=== PATIENT | female | born 1935 | race African-American/Black ===

== ENCOUNTER 2016-11-27 05:05 | Inpatient (IN) | payer MEDICARE, BC, OTHER ==
[2016-11-24 17:24] LABS: BASOPHILS 0.3 %; BASOPHILS ABSOLUTE 0.02 10/3/uL (0.0-0.16); EOSINOPHILS 3.4 %; EOSINOPHILS ABSOLUTE 0.26 10/3/uL (0.0-0.53); HEMATOCRIT 30.7 % (36.0-48.0); HEMOGLOBIN 10.1 g/dL (12.0-16.0); IMMATURE GRANULOCYTES 0.3 %; IMMATURE GRANULOCYTES ABSOLUTE 0.02 10/3/uL (0.0-0.11); LYMPHOCYTES 26.8 %; LYMPHOCYTES ABSOLUTE 2.08 10/3/uL (0.67-4.30); MEAN CORPUS HGB CONC 32.9 g/dL (32.0-36.0); MEAN CORPUSCULAR HEMOGLOB 29.6 pg (26.0-34.0); MEAN PLATELET VOLUME 10.4 fL (9.2-13.0); MONOCYTES 8.3 %; MONOCYTES ABSOLUTE 0.64 10/3/uL (0.21-1.20); NEUTROPHILS 60.9 %; NEUTROPHILS ABSOLUTE 4.73 10/3/uL (2.02-8.40); PLATELET COUNT 198 10/3/uL (150-400); RBC DISTRIBUTION WIDTH 14.4 % (12.0-16.0); RED CELL COUNT 3.41 10/6/uL (4.0-5.6); WHITE BLOOD CELLS 7.8 10/3/uL (4.5-10.5)
[2016-11-24 21:36] LABS: MANUAL DIFF NO %
[~2016-11-27] VITALS: Ht 165.1 cm; Wt 89.5 kg
--- NOTE | ~2016-11-27 | CN ---
Consultation Report [facility] [address] [place]. [address] NAME: SARAY HE : [birth year] STATUS : ADM IN PAT#: [id number] AGE: 81 ADM/REG DATE : 11/27/16 MR#: [id number] REPORT SERV DATE: 11/30/16 DICTATED BY: DATE: REPORT STATUS : Draft TRANSCRIBED BY: MODL DATE: 11/27/16 DATE OF CONSULTATION: REASON FOR CONSULTATION: Late stage chronic kidney disease. The patient admitted to Dr. Benavidez for hysterectomy. HISTORY OF PRESENT ILLNESS: This is a very pleasant 81-year-old female patient followed in our office by Dr. Perez Peres. Baseline creatinine appears to be around 3 to 4 ranging higher at her last followup in 10/2016 at 4.7, the GFR of 12 mL/minute. She has had previous left upper extremity fistula which unfortunately had failed and was unusable. The patient at her last followup with Dr. Perse in 10/2016 stated that she had recently been diagnosed with uterine cancer. Subsequent plans were made for initiation of surgical procedure with Dr. Benavidez, and Dr. Peres had discussed with the patient the likelihood of end-stage renal disease and need for initiation of hemodialysis during her hospital stay postoperatively. Subsequently, the patient was seen by Dr. Ritchie here on the and had a right-sided PermCath placed for possible needed hemodialysis post surgical procedure. She is awake and alert this afternoon. Her family is at bedside during evaluation. The patient is somewhat sleepy postoperatively, but able to be aroused. She denies current chest pain. No nausea, vomiting, or diarrhea. PAST MEDICAL HISTORY: Positive for chronic kidney disease, stage 4 to stage 5 with worsening creatinine as of late. Recent medical history as listed above. She is followed at [facility] by Dr. Perez Peres. 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 REVIEW OF SYSTEMS: Completed. Please see HPI for pertinent details. SOCIAL HISTORY: No EtOH. No illicit drugs. No tobacco. FAMILY HISTORY: Noncontributory and not reviewed during this consultation and dictation. ACTIVE MEDICATIONS: Include the following: Tylenol 650 mg p.o. q.4 hours p.r.n.; Norvasc 10 mg p.o. daily; ASA 325 mg p.o. daily; Rocaltrol 2 caplets p.o. daily; vitamin D3 of 1000 units daily; Colace 100 mg p.o. b.i.d.; Cardura 2 mg p.o. daily; Lasix 40 mg p.o. b.i.d.; Neurontin 300 mg p.o. daily; Plaquenil 2 tabs p.o. daily; Atarax 25 mg p.o. t.i.d. p.r.n.; Levemir 10 units subcutaneous daily; insulin NovoLog via sliding scale; Cozaar 100 mg p.o. daily; multivitamin tabs one daily; Senokot 1 tab daily; sodium bicarbonate 650 mg p.o. b.i.d.; and iron [id number] 65 mg p.o. twice daily. PHYSICAL EXAMINATION: VITAL SIGNS: Blood pressure 127/66, temperature 97.8, respiratory rate 18, heart rate at 58 beats per minute and regular, 97% on room air. Consultation Report [facility] [id number] [place]. [address] NAME: SARAY HE : 37 STATUS : ADM IN [facility]#: [id number] AGE: 81 ADM/REG DATE : 11/27/16 MR#: [id number] REPORT SERV DATE: 11/30/16 DICTATED BY: DATE: REPORT STATUS : Draft TRANSCRIBED BY: MODL DATE: 11/27/16 GENERAL: She is awake and alert. Somewhat somnolent post surgical and anesthesia. Denies uncontrolled pain. HEENT: Normocephalic and atraumatic. Normal ocular movements. No scleral icterus. No conjunctival pallor is appreciated. NECK: Supple without thyromegaly. No JVD. No mass. CHEST: Positive S1 and S2. No rubs or gallops. LUNGS: Diminished throughout, normal expansion and effort bilaterally. GI: Rounded non-firm abdomen with positive somewhat sluggish bowel sounds. : Deferred. NEUROLOGIC: She appears to be grossly intact. Nonfocal. SKIN: Warm, dry, and intact to visualized surfaces. No rash, lesions, or ecchymosis. EXTREMITIES: Show positive pulses to all four extremities. No noted clubbing or cyanosis on examination, and she is of appropriate mood and affect. LABORATORY DATA: Pertinent laboratories and imaging to this evaluation are as follows: Most recent electrolyte profile shows sodium 138, potassium 3.4, chloride 103, CO2 of 24, BUN 75, creatinine 3.78, reflected GFR 12 mL/minute, glucose of 165, calcium at 9.0. CBC shows white blood cell count of 7.8, hematocrit 29.7. Chest PA and lateral shows no acute cardiopulmonary abnormality. A right central venous catheter superimposed. IMPRESSION AND PLAN: This is a late stage chronic kidney disease patient of Dr. Perez Peres, chronic kidney disease stage 5 with the patient now at POD 0 robot assisted laparoscopic hysterectomy via Dr. Benavidez. Baseline creatinine appears to be progressively rising of her last visit her creatinine was at 4.7, GFR of 12 mL/minute. In preparation for this surgery she did have a right subclavian access placed by Dr. Ritchie, but fortunately at this point appears to be reasonably stable. She does not appear to be overtly uremic to questioning or examination and her electrolytes are stable as well as her fluid status. She did have an echocardiogram completed during her evaluation for the surgery showing normal left ventricular size with preserved EF at 55% with mild diastolic dysfunction, mild left atrial enlargement, and normal right ventricular size and systolic function, aortic valve sclerosis without stenosis is also noted. We will continue her home medications as above and follow her closely with serial laboratories. She does have a right subclavian access that is in place and usable if clinically warranted. She is currently POD #0 and appears to be non-uremic and has stable electrolytes and volume status at this point. Strict I's and O's, daily weights, monitor blood glucoses and other parameters very closely, and initiate hemodialysis if clinically warranted. Otherwise, we will defer treatment plan primarily to Dr. Benavidez as the patient is admitted to his service and will modify treatment plan based on clinical presentation, patient laboratory results, further consultation with renal attending. We appreciate consultation. We will follow. JR/MODL Consultation Report [facility] [address] [id number] NAME: SARAY HE : 37 STATUS : ADM IN [facility]#: [id number] AGE: 81 ADM/REG DATE : 11/27/16 MR#: [id number] REPORT SERV DATE: 11/30/16 DICTATED BY: DATE: REPORT STATUS : Draft TRANSCRIBED BY: HOLLY DATE: 11/27/16 Milton Garza NP / [id number] CC: Chanelle Taylor M.D.
--- NOTE | ~2016-11-27 | DS ---
Discharge Summary [facility] [address] [place]. [address] NAME: SARAY HE : [birth year] STATUS : DIS IN PAT#: [id number] AGE: 89 ADM/REG DATE : 11/27/16 MR#: [id number] REPORT SERV DATE: 12/11/16 DICTATED BY: DONALD SLOAN DATE: 12/10/16 REPORT STATUS : Draft TRANSCRIBED BY: HOLLY DATE: 12/10/16 Data Collection from hospitalization DISCHARGE DIAGNOSES: 1. Endometrial cancer. 2. Hypertension. 3. Diabetes. 4. Neuropathy. 5. History of renal insufficiency. 6. Late stage chronic kidney disease. 7. Gout. 8. Rheumatoid arthritis. 9. Gastroesophageal reflux disease. CONSULTATIONS: Milton Garza NP PROCEDURES PERFORMED: Robotic hysterectomy with bilateral salpingo-oophorectomy with endometrial cancer staging with pelvic sentinel node dissection with Firefly-assisted cystoscopy and laparoscopic robotic-assisted appendectomy on 11/27/2016. PATHOLOGY: Pelvic washings (ThinPrep) - negative for malignancy. Lymph node, excision left common iliac sentinel node #1 - no tumor seen. Lymph node, excision of right common iliac sentinel node #2 - no tumor seen. Appendix - no tumor seen. Uterus, bilateral fallopian tubes and ovaries, uterus - endometrioid adenocarcinoma. MEDICATIONS: Tylenol 650 mg every four hours as needed, Norvasc 10 mg every morning, Charisse Aspirin 325 mg every morning, Rocaltrol two capsules every morning, vitamin D3 2000 units daily, Colace 100 mg twice a day, Cardura 2 mg every evening, Lasix 40 mg twice a day, Neurontin 300 mg every day at bedtime, Plaquenil two tablets every morning, Atarax 25 mg three times a day as needed, Levemir 10 units subcutaneously every morning, Humalog injection insulin as instructed, Cozaar 100 mg every morning, multivitamins with minerals one tablet daily, Percocet 5/325 one to two tablets every four to six hours as needed, Compazine 10 mg every six hours as needed, Senokot one tablet twice a day as needed, sodium bicarbonate 650 mg twice a day, and iron 65 mg twice a day. CONDITION AT DISCHARGE: Stable. DISPOSITION: The patient was discharged home on a renal-diabetic low-cholesterol diet with no concentrated carbohydrates and activities as instructed. She would follow up with me on 12/14/2016. She would follow up with Dr. Perez Peres on 12/16/2016. She would follow up with her primary care provider as needed. HOSPITAL COURSE: This is a 89-year-old female who has grade III endometrial carcinoma. She has had an MRI of her back secondary to back pain and an incidental abnormal uterus was found. She went on to have endometrial biopsy performed, which revealed the diagnosis of grade III endometrial carcinoma. Treatment options were discussed and it was elected to proceed with surgical intervention. She was admitted to the hospital at this time for further evaluation and treatment. Discharge Summary [facility] [address] [place]. [address] NAME: SARAY HE : [birth year] STATUS : DIS IN PAT#: [id number] AGE: 89 ADM/REG DATE : 11/27/16 MR#: [id number] REPORT SERV DATE: 12/11/16 DICTATED BY: DONALD SLOAN DATE: 12/10/16 REPORT STATUS : Draft TRANSCRIBED BY: HOLLY DATE: 12/10/16 Upon admission, she was taken to the operating room where she underwent the above-mentioned procedure. She tolerated this well, and there were no complications. Postoperatively, she was seen by Milton Garza. The patient has stage IV to stage V chronic kidney disease. Creatinine level was 3.78. Baseline creatinine appears to be progressively rising since her last visit and her creatinine at that time had been 4.7. In preparation for surgery, she has had right subclavian access placed by Dr. Ritchie, but fortunately at this point, appeared to be reasonably stable. She did not appear to be overtly uremic. Her electrolytes were stable as well as her fluid status. Her echocardiogram had shown normal left ventricular size with preserved ejection fraction at 55% with mild diastolic dysfunction, mild left atrial enlargement, and normal right ventricular size and systolic function. Aortic valve sclerosis without stenosis was also noted. She has a right subclavian access that was in place and usable if clinically warranted. Hemodialysis would be initiated if clinically warranted. On postop day #1, she had no shortness of breath. She was able to eat breakfast. She had no complaints. She was making urine. She had no uremic symptoms. There was no need for hemodialysis yet. IV fluids were stopped. On 11/29/2016, she had no new complaints. She had no shortness of breath. Over the next couple of days, she continued to tolerate her diet. Creatinine was stable at 3.8. She had no severe abdominal pain. It was felt that if her creatinine stayed stable then we may discontinue the PermCath prior to discharge. She did have some constipation. ARDEN drain was removed. Discharge planning was performed. The PermCath was removed. Creatinine level was 4.20. On 12/02/2016, discharge instructions were given. Due to her improved and stable condition, she was discharged home with the above-stated instructions. Information collected by: Deepthi Mack I submit the above information as my discharge summary. TG/HOLLY Donald Sloan M.D. / [id number] CC: Chanelle Taylor M.D. John Richardson, NP
[~2016-11-27 05:05] MED LIST: ASAEC PO; C1; COREG3 PO; COREG6 PO; COUMADIN7.5 MG PO; DUONEB INH; FERROUS SULF325 M1 PO; GLUCOTROL5 PO; HYZAAR1 TAB PO; LEVEMIR SC; MAGOX4 PO; NEUR300 PO; NEUR600 PO; NORV10 PO; NOVOLOG SC; PLAQ200B PO; PRILO PO; SENOKOTS PO; T PO; TRAZ50 PO; XYZAL5 MG PO; [UNRECOGNIZED DRUG - REMARK]
[2016-11-27 06:00] LABS: BUN (BLOOD UREA NITROGEN) 75 MG/DL (6-23); CHLORIDE, SERUM 103 MMOL/L (96-112); CO2 (CARBON DIOXIDE) 24 MMOL/L (24-34); CREATININE 3.78 MG/DL (0.55-1.02); GFR AFRICAN AMERICAN 12 ML/MIN (>=60); GFR NON AFRICAN AMERICAN 11 ML/MIN (>=60); GLUCOSE, SERUM 165 MG/DL (60-99); POTASSIUM, SERUM 3.4 MMOL/L (3.5-5.3); SODIUM, SERUM 138 MMOL/L (135-148)
[2016-11-27 19:33] LABS: BASOPHILS 0.2 %; BASOPHILS ABSOLUTE 0.02 10/3/uL (0.0-0.16); EOSINOPHILS ABSOLUTE 0.08 10/3/uL (0.0-0.53); HEMATOCRIT 27.6 % (36.0-48.0); HEMOGLOBIN 9.3 g/dL (12.0-16.0); IMMATURE GRANULOCYTES 0.5 %; IMMATURE GRANULOCYTES ABSOLUTE 0.04 10/3/uL (0.0-0.11); LYMPHOCYTES 18.3 %; LYMPHOCYTES ABSOLUTE 1.54 10/3/uL (0.67-4.30); MEAN CORPUS HGB CONC 33.7 g/dL (32.0-36.0); MEAN CORPUSCULAR HEMOGLOB 30.4 pg (26.0-34.0); MEAN CORPUSCULAR VOLUME 90.2 fL (80-100); MEAN PLATELET VOLUME 10.3 fL (9.2-13.0); MONOCYTES 5.7 %; MONOCYTES ABSOLUTE 0.48 10/3/uL (0.21-1.20); NEUTROPHILS 74.3 %; NEUTROPHILS ABSOLUTE 6.26 10/3/uL (2.02-8.40); PLATELET COUNT 179 10/3/uL (150-400); RBC DISTRIBUTION WIDTH 13.8 % (12.0-16.0); RED CELL COUNT 3.06 10/6/uL (4.0-5.6); WHITE BLOOD CELLS 8.4 10/3/uL (4.5-10.5)
[2016-11-27 19:34] LABS: MANUAL DIFF NO %
[2016-11-28 06:32] LABS: BASOPHILS 0.2 %; BASOPHILS ABSOLUTE 0.02 10/3/uL (0.0-0.16); EOSINOPHILS ABSOLUTE 0.26 10/3/uL (0.0-0.53); HEMOGLOBIN 9.4 g/dL (12.0-16.0); IMMATURE GRANULOCYTES 0.2 %; IMMATURE GRANULOCYTES ABSOLUTE 0.02 10/3/uL (0.0-0.11); LYMPHOCYTES 19.4 %; LYMPHOCYTES ABSOLUTE 1.68 10/3/uL (0.67-4.30); MANUAL DIFF NO %; MEAN CORPUS HGB CONC 33.6 g/dL (32.0-36.0); MEAN CORPUSCULAR HEMOGLOB 30.1 pg (26.0-34.0); MEAN CORPUSCULAR VOLUME 89.7 fL (80-100); MEAN PLATELET VOLUME 10.4 fL (9.2-13.0); MONOCYTES 7.7 %; MONOCYTES ABSOLUTE 0.67 10/3/uL (0.21-1.20); NEUTROPHILS 69.5 %; NEUTROPHILS ABSOLUTE 6.03 10/3/uL (2.02-8.40); PLATELET COUNT 168 10/3/uL (150-400); RBC DISTRIBUTION WIDTH 14.2 % (12.0-16.0); RED CELL COUNT 3.12 10/6/uL (4.0-5.6); WHITE BLOOD CELLS 8.7 10/3/uL (4.5-10.5)
[2016-11-28 06:42] LABS: ALBUMIN 2.9 G/DL (3.5-5.0); BUN (BLOOD UREA NITROGEN) 73 MG/DL (6-23); CALCIUM, SERUM 8.5 MG/DL (8.5-10.4); CHLORIDE, SERUM 105 MMOL/L (96-112); CO2 (CARBON DIOXIDE) 24 MMOL/L (24-34); GFR AFRICAN AMERICAN 11 ML/MIN (>=60); GFR NON AFRICAN AMERICAN 10 ML/MIN (>=60); GLUCOSE, SERUM 97 MG/DL (60-99); PHOSPHORUS, SERUM 3.6 MG/DL (2.5-4.5); POTASSIUM, SERUM 3.6 MMOL/L (3.5-5.3); SODIUM, SERUM 139 MMOL/L (135-148)
[2016-11-29 06:05] LABS: BASOPHILS 0.2 %; BASOPHILS ABSOLUTE 0.01 10/3/uL (0.0-0.16); EOSINOPHILS 3.8 %; EOSINOPHILS ABSOLUTE 0.25 10/3/uL (0.0-0.53); HEMATOCRIT 26.3 % (36.0-48.0); HEMOGLOBIN 8.8 g/dL (12.0-16.0); IMMATURE GRANULOCYTES 0.3 %; IMMATURE GRANULOCYTES ABSOLUTE 0.02 10/3/uL (0.0-0.11); LYMPHOCYTES 19.8 %; LYMPHOCYTES ABSOLUTE 1.31 10/3/uL (0.67-4.30); MEAN CORPUS HGB CONC 33.5 g/dL (32.0-36.0); MEAN CORPUSCULAR HEMOGLOB 30.1 pg (26.0-34.0); MEAN CORPUSCULAR VOLUME 90.1 fL (80-100); MEAN PLATELET VOLUME 10.2 fL (9.2-13.0); MONOCYTES 7.1 %; MONOCYTES ABSOLUTE 0.47 10/3/uL (0.21-1.20); NEUTROPHILS 68.8 %; NEUTROPHILS ABSOLUTE 4.56 10/3/uL (2.02-8.40); PLATELET COUNT 175 10/3/uL (150-400); RBC DISTRIBUTION WIDTH 14.1 % (12.0-16.0); RED CELL COUNT 2.92 10/6/uL (4.0-5.6); WHITE BLOOD CELLS 6.6 10/3/uL (4.5-10.5)
[2016-11-29 06:08] LABS: MANUAL DIFF NO %
[2016-11-29 06:18] LABS: ALBUMIN 2.6 G/DL (3.5-5.0); BUN (BLOOD UREA NITROGEN) 70 MG/DL (6-23); CALCIUM, SERUM 8.1 MG/DL (8.5-10.4); CHLORIDE, SERUM 107 MMOL/L (96-112); CO2 (CARBON DIOXIDE) 24 MMOL/L (24-34); CREATININE 3.73 MG/DL (0.55-1.02); GFR AFRICAN AMERICAN 13 ML/MIN (>=60); GFR NON AFRICAN AMERICAN 11 ML/MIN (>=60); GLUCOSE, SERUM 98 MG/DL (60-99); PHOSPHORUS, SERUM 2.8 MG/DL (2.5-4.5); POTASSIUM, SERUM 3.8 MMOL/L (3.5-5.3); SODIUM, SERUM 142 MMOL/L (135-148)
[2016-11-30 06:17] LABS: BASOPHILS 0.1 %; BASOPHILS ABSOLUTE 0.01 10/3/uL (0.0-0.16); EOSINOPHILS 2.7 %; EOSINOPHILS ABSOLUTE 0.23 10/3/uL (0.0-0.53); HEMATOCRIT 27.6 % (36.0-48.0); HEMOGLOBIN 9.2 g/dL (12.0-16.0); IMMATURE GRANULOCYTES 0.4 %; IMMATURE GRANULOCYTES ABSOLUTE 0.03 10/3/uL (0.0-0.11); LYMPHOCYTES 15.9 %; LYMPHOCYTES ABSOLUTE 1.35 10/3/uL (0.67-4.30); MEAN CORPUS HGB CONC 33.3 g/dL (32.0-36.0); MEAN CORPUSCULAR HEMOGLOB 30.3 pg (26.0-34.0); MEAN CORPUSCULAR VOLUME 90.8 fL (80-100); MEAN PLATELET VOLUME 9.7 fL (9.2-13.0); MONOCYTES 7.8 %; MONOCYTES ABSOLUTE 0.66 10/3/uL (0.21-1.20); NEUTROPHILS 73.1 %; NEUTROPHILS ABSOLUTE 6.22 10/3/uL (2.02-8.40); PLATELET COUNT 189 10/3/uL (150-400); RBC DISTRIBUTION WIDTH 13.9 % (12.0-16.0); RED CELL COUNT 3.04 10/6/uL (4.0-5.6); WHITE BLOOD CELLS 8.5 10/3/uL (4.5-10.5)
[2016-11-30 06:18] LABS: MANUAL DIFF NO %
[2016-11-30 06:34] LABS: ALBUMIN 2.6 G/DL (3.5-5.0); BUN (BLOOD UREA NITROGEN) 66 MG/DL (6-23); CALCIUM, SERUM 8.5 MG/DL (8.5-10.4); CHLORIDE, SERUM 108 MMOL/L (96-112); CO2 (CARBON DIOXIDE) 24 MMOL/L (24-34); CREATININE 3.88 MG/DL (0.55-1.02); GFR AFRICAN AMERICAN 12 ML/MIN (>=60); GFR NON AFRICAN AMERICAN 10 ML/MIN (>=60); GLUCOSE, SERUM 155 MG/DL (60-99); PHOSPHORUS, SERUM 2.6 MG/DL (2.5-4.5); POTASSIUM, SERUM 4.2 MMOL/L (3.5-5.3); SODIUM, SERUM 140 MMOL/L (135-148)
[2016-12-01 06:04] LABS: BASOPHILS 0.1 %; BASOPHILS ABSOLUTE 0.01 10/3/uL (0.0-0.16); EOSINOPHILS 3.1 %; EOSINOPHILS ABSOLUTE 0.28 10/3/uL (0.0-0.53); HEMATOCRIT 26.2 % (36.0-48.0); HEMOGLOBIN 8.7 g/dL (12.0-16.0); IMMATURE GRANULOCYTES 0.2 %; IMMATURE GRANULOCYTES ABSOLUTE 0.02 10/3/uL (0.0-0.11); LYMPHOCYTES ABSOLUTE 2.33 10/3/uL (0.67-4.30); MEAN CORPUS HGB CONC 33.2 g/dL (32.0-36.0); MEAN CORPUSCULAR HEMOGLOB 29.9 pg (26.0-34.0); MEAN PLATELET VOLUME 9.6 fL (9.2-13.0); MONOCYTES 10.1 %; NEUTROPHILS 60.5 %; NEUTROPHILS ABSOLUTE 5.41 10/3/uL (2.02-8.40); PLATELET COUNT 186 10/3/uL (150-400); RBC DISTRIBUTION WIDTH 14.2 % (12.0-16.0); RED CELL COUNT 2.91 10/6/uL (4.0-5.6)
[2016-12-01 06:05] LABS: MANUAL DIFF NO %
[2016-12-01 06:42] LABS: ALBUMIN 2.4 G/DL (3.5-5.0); BUN (BLOOD UREA NITROGEN) 69 MG/DL (6-23); CALCIUM, SERUM 8.2 MG/DL (8.5-10.4); CHLORIDE, SERUM 104 MMOL/L (96-112); CO2 (CARBON DIOXIDE) 23 MMOL/L (24-34); DIRECT BILIRUBIN 0.1 MG/DL (0.0-0.4); GFR AFRICAN AMERICAN 11 ML/MIN (>=60); GFR NON AFRICAN AMERICAN 9 ML/MIN (>=60); PHOSPHORUS, SERUM 3.2 MG/DL (2.5-4.5); POTASSIUM, SERUM 4.2 MMOL/L (3.5-5.3); SGOT(AST) 17 U/L (5-40); SGPT(ALT) 14 U/L (5-65); SODIUM, SERUM 136 MMOL/L (135-148); TOTAL PROTEIN 5.8 G/DL (6.0-8.5)
[2016-12-01 06:47] LABS: ALKALINE PHOSPHATASE 50 U/L (45-117); GLUCOSE, SERUM 121 MG/DL (60-99); INDIRECT BILIRUBIN(NOT ORDER) 0.3 MG/DL (0.1-0.9); TOTAL BILIRUBIN 0.4 MG/DL (0-1.2)
[2016-12-01] MEDS ORDERED: COMP10B PO (09:04)
[2016-12-01] MEDS ORDERED: PCET PO (09:04)
[2016-12-13] MEDS ORDERED: PLAQ200B PO (12:00)
[2016-12-13] MEDS ORDERED: ROCALTROL 0.0.25 MCG PO (12:01)
[2016-12-13] MEDS ORDERED: NEUR300 PO (12:01)
[2016-12-13] MEDS ORDERED: NORV10 PO (12:01)
[2016-12-13] MEDS ORDERED: DSS PO (12:02)
[2016-12-13] MEDS ORDERED: IRON OTC PO (12:02)
[2016-12-13] MEDS ORDERED: SENTAB PO (12:03)
[2016-12-13] MEDS ORDERED: VITAMIN D31000 UNIT PO (12:03)
[2016-12-13] MEDS ORDERED: ASABAYER PO (12:03)
[2016-12-13] MEDS ORDERED: COZAAR100 MG PO (12:04)
[2016-12-13] MEDS ORDERED: SODBICAR10 PO (12:04)
[2016-12-13] MEDS ORDERED: CARDU2 PO (12:04)
[2016-12-13] MEDS ORDERED: L40 PO (12:04)
[2016-12-13] MEDS ORDERED: MULTIVIT/MIN PO (12:04)
[2016-12-13] MEDS ORDERED: LEVEMIR SC (12:05)
[2016-12-13] MEDS ORDERED: HUMALOG SC (12:05)
[2016-12-13] MEDS ORDERED: AT25 PO (12:05)
[2016-12-13] MEDS ORDERED: PCET PO (12:14)
== END 2016-12-02 11:05 | disposition home or self-care (01) | DRG 740 ==
LOC: ENRESERVTM → ENRESERVDT → ENRESERV → SDC 05:05 → EDBD 06:00 → 4EA 13:23 → EDBD 12-02 11:05 → 4EA 12-02 11:05
PROVIDERS: Internal Medicine Nephrology; Obstetrics & Gynecology Gynecologic Oncology; Registered Nurse
PROC: 0UT20ZZ Resection of Bilateral Ovaries, Open Approach (ICD-10-PCS; principal; 2016-11-27 06:00)
PROC: 0UT70ZZ Resection of Bilateral Fallopian Tubes, Open Approach (ICD-10-PCS; principal; 2016-11-27 06:00)
PROC: 0UT90ZZ Resection of Uterus, Open Approach (ICD-10-PCS; principal; 2016-11-27 06:00)
PROC: 07BC0ZX Excision of Pelvis Lymphatic, Open Approach, Diagnostic (ICD-10-PCS; principal; 2016-11-27 06:00)
PROC: 0UTC0ZZ Resection of Cervix, Open Approach (ICD-10-PCS; principal; 2016-11-27 06:00)
PROC: 8E0W0CZ Robotic Assisted Procedure of Trunk Region, Open Approach (ICD-10-PCS; principal; 2016-11-27 06:00)
PROC: 0DTJ0ZZ Resection of Appendix, Open Approach (ICD-10-PCS; principal; 2016-11-27 06:00)
DX: C55 Malignant neoplasm of uterus, part unspecified (principal); I12.0 Hypertensive chronic kidney disease with stage 5 chronic kidney disease or end stage renal disease; T82.49XA Other complication of vascular dialysis catheter, initial encounter; N18.5 Chronic kidney disease, stage 5; N25.81 Secondary hyperparathyroidism of renal origin; E11.22 Type 2 diabetes mellitus with diabetic chronic kidney disease; M06.9 Rheumatoid arthritis, unspecified; I35.8 Other nonrheumatic aortic valve disorders; E11.40 Type 2 diabetes mellitus with diabetic neuropathy, unspecified; K21.9 Gastro-esophageal reflux disease without esophagitis; M10.9 Gout, unspecified; Z79.82 Long term (current) use of aspirin; Z79.4 Long term (current) use of insulin; Z79.899 Other long term (current) drug therapy; Z86.718 Personal history of other venous thrombosis and embolism; K59.00 Constipation, unspecified; K36 Other appendicitis
CPT/HCPCS: 36415; 71010; 71020; 80048; 80069; 80076; 82962; 83735; 85025; 86304; 86850; 86900; 86901; 88112; 88302; 88304; 88307; 88309; 88341; 88342; 88360; A9270-GY; J0694; J2250; J2370; J2405; J2710; J2795; J3010